=== PATIENT | male | born 1985 | race Caucasian/White ===

== ENCOUNTER 2019-04-23 16:57 | Emergency (ER) | payer OTHER ==
[~2019-04-23] VITALS: Ht 170.1 cm; Wt 74.8 kg
== END 2019-04-23 17:30 | disposition left against medical advice (07) ==
LOC: ED 16:57
DX: F11.10 Opioid abuse, uncomplicated (principal); F14.10 Cocaine abuse, uncomplicated; F17.200 Nicotine dependence, unspecified, uncomplicated

== ENCOUNTER 2019-04-24 13:33 | Inpatient (IN) | payer OTHER ==
[~2019-04-24] VITALS: Ht 170.2 cm; Wt 65.3 kg
[2019-04-24 13:36] VITALS: BP 111/63
[2019-04-24 14:30] LABS: BILIRUBIN NEGATIVE (NEGATIVE); BLOOD NEGATIVE (NEGATIVE); CLARITY CLEAR (CLEAR); COLOR YELLOW (YELLOW); GLUCOSE NEGATIVE (NEGATIVE); KETONE NEGATIVE (NEGATIVE); LEUKO ESTERASE NEGATIVE (NEGATIVE); NITRITE NEGATIVE (NEGATIVE); PH 5.5 (5.0-9.0); SPECIFIC GRAVITY >= 1.030 (1.005-1.030); UROBILINOGEN 0.2 E.U./dl (0.2-1.0)
[2019-04-24 14:43] LABS: BACTERIA 1+; EPITHELIAL CELLS 51-100; WBC 0-2 wbc/hpf (0-5)
--- NOTE | 2019-04-24 14:45 | NUR ---
33 year old MALE admitted to room # 426 for stabilization. 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 Compliant with admission procedure. . See assessment forms for additional information about patient status.
[2019-04-24 15:02] LABS: BASO # 0.1 10*3/uL (0.0-0.1); BASO % 1.2 % (0.0-1.0); EOS # 0.3 10*3/uL (0.0-0.4); EOS % 5.5 % (1.0-4.0); HEMOGLOBIN 12.7 g/dl (14.0-18.0); LYMPH # 1.8 10*3/uL (1.3-4.4); LYMPH % 37.3 % (27.0-41.0); MEAN CELL VOLUME 91.5 fl (80.0-94.0); MEAN CORPUSCULAR HGB 29.1 pg (27.0-31.0); MEAN CORPUSCULAR HGB CONC 31.8 g/dl (33.0-37.0); MEAN PLATELET VOLUME 10.1 fl (9.6-12.3); MONO # 0.5 10*3/uL (0.1-1.0); MONO % 9.7 % (3.0-9.0); NEUT # 2.3 10*3/uL (2.3-7.9); NEUT % 46.1 % (47.0-73.0); PLATELET COUNT AUTOMATED 335 10*3/uL (130-400); RED BLOOD COUNT 4.37 10*6/uL (4.50-5.90); WHITE BLOOD COUNT 4.9 10*3/uL (4.8-10.8)
[2019-04-24 15:14] LABS: ALBUMIN 3.5 gm/dl (3.1-4.5); ALKALINE PHOSPHATASE 76 U/L (45-117); BUN 14 mg/dl (7-24); CHLORIDE 105 mmol/L (98-107); CREATININE 1.05 mg/dL (0.70-1.30); POTASSIUM 4.2 mmol/L (3.5-5.1); SGOT/AST 32 IU/L (3-35); SGPT/ALT 40 U/L (12-78); SODIUM 137 mmol/L (136-145); TOTAL PROTEIN 7.9 gm/dL (6.4-8.2)
[2019-04-24 15:20] LABS: ETHYL ALCOHOL < 3.0 mg/dl (<3)
--- NOTE | 2019-04-24 15:21 | NUR ---
PT MEDICATED WTIH ZOFRAN FOR NAUSEA. AND VISTARIL FOR ANXIETY WILL MONITOR
[2019-04-24 15:25] LABS: URINE AMPHETAMINES > 1000 (1000ng/ml); URINE BARBITURATES < 200 (200ng/ml); URINE BENZODIAZEPINES < 200 (200ng/ml); URINE CANNABINOIDS (THC) < 50 (50ng/ml); URINE COCAINE > 300 (300ng/ml); URINE METHADONE < 300 (300ng/ml); URINE OPIATES > 300 (300ng/ml)
[2019-04-24 15:32] LABS: URINE PHENCYCLIDINE < 25 (25ng/ml)
[2019-04-24 16:00] VITALS: BP 100/57
--- NOTE | 2019-04-24 16:50 | NUR ---
PT RESTING IN BED. EYES CLOSED. MEDS APPEAR EFFECTIVE. WILL MONITOR
--- NOTE | 2019-04-24 17:50 | NUR ---
PATIENT MEETS [facility]. [place] STAFF WANTS TO FOLLOW UP WITH [facility] FOR HIS AFTERCARE PLAN. MADELYN BERMUDEZ B.A. METER TESTER POLYPHASE
[2019-04-24 20:00] VITALS: BP 99/59
--- NOTE | 2019-04-24 22:59 | NUR ---
PATIENT MEDICATED WITH TRAZADONE, VISTARIL, ZOFRAN PER REQUEST. WILL CHECK EFFECTIVENESS.
[2019-04-25] VITALS: BP 124/84
[2019-04-25 08:00] VITALS: BP 100/55
--- NOTE | 2019-04-25 09:28 | NUR ---
PT COMPLAINS OF NAUSEA AND ABD CRAMPING. MEDICATED WITH BENTYL AND ZOFRAN.
--- NOTE | 2019-04-25 11:24 | NUR ---
PATIENT STILL WANTS TO FOLLOW UP WITH [facility] FOR HIS AFTERCARE PLAN. MADELYN BERMUDEZ B.A. PROVIDER ENROLLMENT SPECIALIST
--- NOTE | 2019-04-25 11:26 | NUR ---
MEDICATED WITH TYLENOL AND VISTARIL FOR ANXIETY AND HEADACHE. WILL MONITOR FOR EFFECTIVENESS.
[2019-04-25 12:00] VITALS: BP 131/67
--- NOTE | 2019-04-25 14:00 | NUR ---
PT RESTING MORE COMFORTABLY, EARLIER MEDICATIONS HELPED, REQUESTED ROBAXIN FOR MUSCLE ACHES.
[2019-04-25 16:00] VITALS: BP 109/71
--- NOTE | 2019-04-25 19:00 | NUR ---
ASSUMED CARE FOR THIS PT AT THIS TIME. PT RESTING QUIETLY IN BED.
[2019-04-25 20:00] VITALS: BP 112/72
--- NOTE | 2019-04-25 20:20 | NUR ---
PT MEDICATED W/REQUIP FOR C/O RLS. PT C/O DIAPHORESIS. HEAT TURNED OFF IN ROOM. DOOR CLOSED PER PT REQUEST. PT RESTING QUIETLY IN BED.
--- NOTE | 2019-04-25 23:34 | NUR ---
PATIENT WOKEN UP TO TAKE LIBRIUM. VOICES NO COMPLAINTS AT THIS TIME AND DENIES ANY NEEDS. WILL CONTINUE TO MONITOR.
[2019-04-26] VITALS: BP 105/58
[2019-04-26 08:00] VITALS: BP 106/63
[2019-04-26 12:00] VITALS: BP 103/64
[2019-04-26] MEDS ORDERED: METHOCARBAMOL750 M1 PO (13:00)
[2019-04-26] MEDS ORDERED: VITAMIN B-1100 M1 PO (13:00)
[2019-04-26] MEDS ORDERED: ZOFRAN 4 MG ED2 TAB PO (13:00)
[2019-04-26] MEDS ORDERED: DICYCLOMINE HCL20 MG PO (13:00)
[2019-04-26] MEDS ORDERED: THERA TABLET400 MCG PO (13:00)
[2019-04-26] MEDS ORDERED: NATURE'S BLEND F1 MG PO (13:00)
[2019-04-26] MEDS ORDERED: ROPINIROLE HYD0.5 MG PO (13:00)
[2019-04-26] MEDS ORDERED: ATARAX,VISTARIL50 MG PO (13:00)
--- NOTE | 2019-04-26 13:00 | NUR ---
PT TO BE DISCHARGED AT 2PM, ORDER RECEIVED TO GIVE 1800 SUBUTEX PRIOR TO D/C
--- NOTE | 2019-04-26 14:15 | NUR ---
[place] STAFF SPOKE WITH PATIENT. PATIENT REPORT THAT HE IS GOING TO FOLLOW UP WITH SELF-HELP MEETINGS. MADELYN BERMUDEZ B.A. SERVER PROGRAMMER
--- NOTE | 2019-04-26 14:43 | NUR ---
Patient discharged in stable condition, referral letter provided to patient with specific instructions and appointment for ongoing treatment. Patient verbalizes understanding of discharge plan.
== END 2019-04-26 14:43 | disposition home or self-care (01) | DRG 773 ==
LOC: ED 13:33 → 4E 13:56 → EDHOLD 13:56 → 4E 14:07
PROVIDERS: Emergency Medicine; Registered Nurse; ADMIT Family Medicine
DX: F11.23 Opioid dependence with withdrawal (principal); B19.20 Unspecified viral hepatitis C without hepatic coma; F14.10 Cocaine abuse, uncomplicated; F15.10 Other stimulant abuse, uncomplicated; Z82.0 Family history of epilepsy and other diseases of the nervous system; Z79.899 Other long term (current) drug therapy

== ENCOUNTER 2020-01-07 14:50 | Inpatient (IN) | payer OTHER ==
[~2020-01-07] VITALS: Ht 170.1 cm; Wt 69.9 kg
[~2020-01-07 14:50] MED LIST: ATARAX,VISTARIL50 MG PO; DICYCLOMINE HCL20 MG PO; METHOCARBAMOL750 M1 PO; NATURE'S BLEND F1 MG PO; ROPINIROLE HYD0.5 MG PO; THERA TABLET400 MCG PO; VITAMIN B-1100 M1 PO; ZOFRAN 4 MG ED2 TAB PO
[2020-01-07 15:08] VITALS: BP 108/69
[2020-01-07 16:03] LABS: BASO # 0.1 10*3/uL (0.0-0.1); EOS # 0.2 10*3/uL (0.0-0.4); EOS % 2.3 % (1.0-4.0); HEMATOCRIT 37.5 % (42.0-52.0); LYMPH # 1.8 10*3/uL (1.3-4.4); LYMPH % 26.4 % (27.0-41.0); MEAN CELL VOLUME 91.2 fl (80.0-94.0); MEAN CORPUSCULAR HGB 28.2 pg (27.0-31.0); MEAN CORPUSCULAR HGB CONC 30.9 g/dl (33.0-37.0); MEAN PLATELET VOLUME 9.3 fl (9.6-12.3); MONO # 0.9 10*3/uL (0.1-1.0); MONO % 13.2 % (3.0-9.0); NEUT # 3.9 10*3/uL (2.3-7.9); PLATELET COUNT AUTOMATED 338 10*3/uL (130-400); RED BLOOD COUNT 4.11 10*6/uL (4.50-5.90); RED CELL DISTRI WIDTH 13.6 % (0-14.5); WHITE BLOOD COUNT 6.9 10*3/uL (4.8-10.8)
[2020-01-07 16:18] LABS: ALBUMIN 3.4 gm/dl (3.1-4.5); ALKALINE PHOSPHATASE 65 U/L (45-117); BUN 22 mg/dl (7-24); CHLORIDE 104 mmol/L (98-107); CREATININE 0.99 mg/dL (0.70-1.30); POTASSIUM 4.3 mmol/L (3.5-5.1); SGOT/AST 47 IU/L (3-35); SGPT/ALT 68 U/L (12-78); SODIUM 137 mmol/L (136-145)
[2020-01-07 16:20] LABS: ACETAMINOPHEN (TYLENOL) < 5.0 ug/ml (10-30); ETHYL ALCOHOL < 3.0 mg/dl (<3)
[2020-01-07 16:35] LABS: BILIRUBIN NEGATIVE (NEGATIVE); BLOOD NEGATIVE (NEGATIVE); CLARITY CLEAR (CLEAR); COLOR YELLOW (YELLOW); GLUCOSE NEGATIVE (NEGATIVE); KETONE NEGATIVE (NEGATIVE); LEUKO ESTERASE NEGATIVE (NEGATIVE); NITRITE NEGATIVE (NEGATIVE); PH 6.5 (5.0-9.0); SPECIFIC GRAVITY 1.025 (1.005-1.030); UROBILINOGEN 0.2 E.U./dl (0.2-1.0)
[2020-01-07 16:38] LABS: BACTERIA TRACE; RBC 0-2 rbc/hpf (0-2)
[2020-01-07 16:39] LABS: URINE AMPHETAMINES > 1000 (1000ng/ml); URINE BARBITURATES < 200 (200ng/ml); URINE BENZODIAZEPINES < 200 (200ng/ml); URINE CANNABINOIDS (THC) < 50 (50ng/ml); URINE COCAINE < 300 (300ng/ml); URINE METHADONE < 300 (300ng/ml); URINE OPIATES < 300 (300ng/ml)
[2020-01-07 16:40] LABS: URINE PHENCYCLIDINE < 25 (25ng/ml)
[2020-01-07 16:45] VITALS: BP 112/68
[2020-01-07 20:00] VITALS: BP 120/59
[2020-01-08] VITALS: BP 123/75
[2020-01-08 08:00] VITALS: BP 106/69
[2020-01-08 12:00] VITALS: BP 99/50
[2020-01-08 16:00] VITALS: BP 105/51
[2020-01-08 20:00] VITALS: BP 100/52
[2020-01-09] VITALS: BP 116/65
[2020-01-09 08:00] VITALS: BP 121/65
[2020-01-09 12:00] VITALS: BP 112/55
[2020-01-09 16:00] VITALS: BP 117/64
[2020-01-09 20:00] VITALS: BP 113/58
[2020-01-10] VITALS: BP 120/69
[2020-01-10 07:04] LABS: BASO # 0.1 10*3/uL (0.0-0.1); BASO % 1.1 % (0.0-1.0); EOS # 0.2 10*3/uL (0.0-0.4); EOS % 3.3 % (1.0-4.0); HEMATOCRIT 42.2 % (42.0-52.0); LYMPH # 2.7 10*3/uL (1.3-4.4); LYMPH % 48.8 % (27.0-41.0); MEAN CELL VOLUME 90.4 fl (80.0-94.0); MEAN CORPUSCULAR HGB 28.3 pg (27.0-31.0); MEAN CORPUSCULAR HGB CONC 31.3 g/dl (33.0-37.0); MEAN PLATELET VOLUME 9.7 fl (9.6-12.3); MONO # 0.6 10*3/uL (0.1-1.0); MONO % 11.7 % (3.0-9.0); NEUT # 1.9 10*3/uL (2.3-7.9); NEUT % 34.9 % (47.0-73.0); PLATELET COUNT AUTOMATED 384 10*3/uL (130-400); RED BLOOD COUNT 4.67 10*6/uL (4.50-5.90); RED CELL DISTRI WIDTH 14.1 % (0-14.5); WHITE BLOOD COUNT 5.5 10*3/uL (4.8-10.8)
[2020-01-10 07:24] LABS: CREATININE 0.96 mg/dL (0.70-1.30)
[2020-01-10 08:00] VITALS: BP 112/70
[2020-01-10] MEDS ORDERED: METHOCARBAMOL750 M1 PO (08:35)
[2020-01-10] MEDS ORDERED: ATARAX,VISTARIL50 MG PO (08:35)
[2020-01-10] MEDS ORDERED: ZOFRAN 4 MG ED2 TAB PO (08:36)
[2020-01-10] MEDS ORDERED: NATURE'S BLEND F1 MG PO (08:36)
[2020-01-10] MEDS ORDERED: VITAMIN B-1100 M1 PO (08:36)
== END 2020-01-10 11:20 | disposition home or self-care (01) | DRG 773 ==
LOC: ED 14:50 → 4E 15:43 → EDHOLD 15:43 → 4E 16:16
PROVIDERS: Nurse Practitioner Family; ADMIT Internal Medicine
DX: F11.23 Opioid dependence with withdrawal (principal); B19.20 Unspecified viral hepatitis C without hepatic coma; R00.1 Bradycardia, unspecified; D64.9 Anemia, unspecified; F17.210 Nicotine dependence, cigarettes, uncomplicated; Z71.6 Tobacco abuse counseling; Z79.899 Other long term (current) drug therapy